=== PATIENT | female | born 2000 | race Two or more races ===

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

== ENCOUNTER 2020-01-29 23:25 | Emergency (ER) | payer BC, MEDICAID ==
[~2020-01-29] VITALS: Ht 162.6 cm; Wt 104.5 kg
[2020-01-29 23:25] VITALS: BP 121/83
--- NOTE | 2020-01-29 23:37 | PHYS DOC ---
Past History Past Medical History: No Pertinent History Past Surgical History: No Surgical History Smoking: Non-smoker Alcohol Use: Rarely Drug Use: None General Adult HPI: HPI: ":.. I got this Lt eye pain..or irritation... It woke me up tonight..It livia started yesterday... That seems like it is also bothering him my right eye..." Patient is a 19 year old female who presents with above hx and complaints of irritated eyes. Patient localizes primary area discomfort in left eye. Patient has obvious conjunctivitis in left eye and swollen eyelids. Patient has been rubbing her eyes. Patient denies any trauma. On exam patient has consensual response to light. Does have findings of a area that appears to be formation of ulcer in the right lower quadrant of the cornea of the left eye. No foreign body appreciated. Does have mild limbus injection in the area of the ulcer formation. Initially patient was unable to read the Snellen chart however after application of tetracaine was able to read at 20/20 with left eye and right eye with her glasses on. Patient denies any specific ill contacts. No history of travel outside [facility] area. Does not remember her last tetanus shot. No history of immunosuppression. Fundus exam limited but no gross findings appreciated. Extraocular muscles intact. Area of questionable ulcer did have fluorescein uptake. Viral cultures and bacterial cultures collected from area of ulcer. Review of Systems: Review of Systems: Constitutional: Denies fever or chills Eyes: Complaints of Lt eye irritation and conjunctivitis HENT: Denies nasal congestion or sore throat Respiratory: Denies cough or shortness of breath Cardiovascular: Denies chest pain or edema GI: Denies abdominal pain, nausea, vomiting, bloody stools or diarrhea : Denies dysuria Musculoskeletal: Denies back pain or joint pain Integument: Denies rash Neurologic: Denies headache, focal weakness or sensory changes Endocrine: Denies polyuria or polydipsia Lymphatic: Denies swollen glands Psychiatric: Denies depression or anxiety Heart Score: Risk Factors: Risk Factors: DM, Current or recent (<one month) smoker, HTN, HLP, family history of CAD, obesity. Risk Scores: Score 0 - 3: 2.5% MACE over next 6 weeks - Discharge Home Score 4 - 6: 20.3% MACE over next 6 weeks - Admit for Clinical Observation Score 7 - 10: 72.7% MACE over next 6 weeks - Early Invasive Strategies Family History: Family History: Noncontributory Current Medications: Current Meds: See nursing for home meds Allergies: Allergies: Allergies Coded Allergies Type Severity Reaction Last Updated Verified No Known Drug Allergies 08/10/17 No Physical Exam: PE: Constitutional: Moderate acute distress, non-toxic appearance. [] HENT: Normocephalic, atraumatic, bilateral external ears normal, oropharynx moist, no oral exudates, nose normal. [] Eyes: PERRLA, EOMI, conjunctiva injected in the left eye, appears to have start of a ulcer formation right lower quadrant of left cornea, no discharge. [] Neck: Normal range of motion, no tenderness, supple, no stridor. [] Cardiovascular:Heart rate regular rhythm, no murmur [] Lungs & Thorax: Bilateral breath sounds clear to auscultation [] Abdomen: Bowel sounds normal, soft, no tenderness, no masses, no pulsatile masses. Obese. Skin: Warm, dry, no erythema, no rash. [] Back: No tenderness, no CVA tenderness. [] Extremities: No tenderness, no cyanosis, no clubbing, ROM intact, no edema. [] Neurologic: Alert and oriented X 3, normal motor function, normal sensory function, no focal deficits noted. [] Psychologic: Affect anxious,, judgement normal, mood normal. [] EKG: EKG: [] Radiology/Procedures: Radiology/Procedures: [] Course & Med Decision Making: Course & Med Decision Making Pertinent Labs and Imaging studies reviewed. (See chart for details) Patient must follow-up with ophthalmology. Call [facility] of choice in the morning. If unable to get into her [facility] patient to call [facility] [phone]. Patient may use 1 drop of Toradol to the left eye up to 4 times a day for discomfort. Patient apply a small amount erythromycin ointment and/or Polysporin ointment to left eye 4 times a day. Prescription given for Trifluridine one drop 4 x day. MUST SEE [facility] in the morning. Take Tylenol and ibuprofen for pain. Must not rub eyes. Impression: 1, Lt. Conjunctivitis 2. Lt. Corneal Ulcer Rt.lower quadrant [] Dragon Disclaimer: Dragon Disclaimer: This electronic medical record was generated, in whole or in part, using a voice recognition dictation system. Departure Departure: Disposition: 01 HOME/RESIDENCE PRIOR TO ADM Condition: STABLE Referrals: PCP,NO (PCP) Scripts Hydrocodone/Ibuprofen (HYDROCODONE-IBUPROFEN 7.5-200 ) 1 Each Tablet 1 TAB PO PRN Q6HRS PRN for PAIN, #30 TAB 0 Refills Prov: LORI ESTRELLA MD 01/30/20 Trifluridine (TRIFLURIDINE) 7.5 Ml Drops 1 DROP OS 5XDAY for corneal ulcer for 7 Days, ML 0 Refills Prov: LORI ESTRELLA MD 01/30/20 Justification of Admission: Justification of Admission: Justification of Admission Dx: N/A [place] Disclaimer This chart was dictated in whole or in part using Voice Recognition software in a busy, high-work load, and often noisy Emergency Department environment. It may contain unintended and wholly unrecognized errors or omissions. Dragon Disclaimer This chart was dictated in whole or in part using Voice Recognition software in a busy, high-work load, and often noisy Emergency Department environment. It may contain unintended and wholly unrecognized errors or omissions. LORI ESTRELLA MD Jan 29, 2020 23:37
[2020-01-29] MEDS ORDERED: FLUORESCEIN 1MG EYE STRIP. OD ONE (23:45)
[2020-01-29] MEDS ORDERED: ERYTHROMYCIN 0.5% OPHTH OINTMENT 1GM TUBE. OU ONE (23:45)
[2020-01-29] MEDS ORDERED: TETRACAINE 0.5% OPHTH SOLUTION 4ML BOTTLE. OU ONE (23:45)
[2020-01-30] MEDS ORDERED: KETOROLAC TROMETHAMINE 0.5% OPHTH SOLUTION BOTTLE. OU ONE
[2020-01-30] MEDS ORDERED: TRIF7.5D4 OS (00:30)
[2020-01-30] MEDS ORDERED: HYDR-1179 PO (00:31)
[2020-01-30] MEDS ORDERED: TETANUS AND DIPHTHERIA TOX/PF 0.5 ML VIAL. VAX IM ONE (01:00)
[2020-01-30] MEDS ORDERED: BACITRACIN/POLYMYXIN B OPHTH OINTMENT 3.5GM TUBE. OU ONE (01:00)
[2020-01-30] MEDS ORDERED: DIPH,PERTUSS(ACELL),TET VAC/PF 0.5 ML SYRINGE. VAX IM ONE (01:30)
== END 2020-01-30 01:32 | disposition home or self-care (01) ==
LOC: ER 23:25
DX: H10.9 Unspecified conjunctivitis (principal); H16.001 Unspecified corneal ulcer, right eye
CPT/HCPCS: 87070; 87252; 87491; 87591; 90471; 90715; 99284-25